=== PATIENT | female | born 2000 | race Hispanic/Latino ===

== ENCOUNTER 2020-05-07 15:15 | Emergency (ER) | payer BC ==
[~2020-05-07] VITALS: Ht 149.9 cm; Wt 52.2 kg
[2020-05-07] MEDS ORDERED: AUGMENTIN 500-1 EACH PO (15:36)
== END 2020-05-07 15:32 | disposition home or self-care (01) ==
LOC: FSED 15:30
DX: S00.451A Superficial foreign body of right ear, initial encounter (principal); W45.8XXA Other foreign body or object entering through skin, initial encounter
CPT/HCPCS: 99282